=== PATIENT | male | born 1945 | race Caucasian/White ===

== ENCOUNTER 2021-11-12 12:15 | Observation (INO) | payer MEDICARE ==
[2021-11-13 14:37] LABS: #Basophils 0.1 10x3/uL (0.0-0.2); #Eosinphils 0.2 10x3/uL (0.0-0.5); #Monocytes 0.8 10x3/uL (0.0-1.1); #Neutrophils 3.1 10x3/uL (1.5-8.4); %Basophils 0.7 % (0.0-2.0); %Eosinophils 3.2 % (0.0-6.0); %Lymphocytes 44.1 % (18.0-47.0); %Monocytes 10.7 % (0.0-10.0); %Neutrophils 40.8 % (40.0-75.0); Hemoglobin 13.4 g/dL (13.5-17.5); Mean Corpuscular HGB CONC 34.7 g/dL (32.0-36.0); Mean Corpuscular Hemoglobin 30.5 pg (27.0-33.0); Mean Corpuscular Volume 87.7 fl (81.2-95.1); Mean Platelet Volume 11.8 fl (7.4-10.4); Platelet Count 189 10x3/uL (150-450); RBC Distribution Width 12.9 % (11.5-14.5); White Blood Cell (WBC) Count 7.5 10x3/uL (3.5-10.5)
[2021-11-13 14:52] LABS: Anion Gap 20 mmol/L (10-20); BUN (Urea Nitrogen) 11 mg/dL (8.4-25.7); Calc. Creatinine Clearance 0 mL/min (70-130); Calcium 9.5 mg/dL (7.8-10.44); Carbon Dioxide 21 mmol/L (23-31); Chloride 99 mmol/L (98-107); Glucose 300 mg/dL (83-110); Potassium 4.6 mmol/L (3.5-5.1); Sodium 135 mmol/L (136-145)
[2021-11-13 14:55] LABS: INR-International Normal Ratio 0.9; PTT 23.4 sec (22.0-33.0); Prothrombin Time 9.8 sec (9.5-12.1)
[2021-11-17] MEDS ORDERED: PROPOFOL 20 ML ONE (10:30)
[2021-11-17] MEDS ORDERED: Fentanyl 250 MCG/5 ML VIAL ONE (10:31)
[2021-11-17] MEDS ORDERED: Ondansetron PF 4 MG/2 ML Vial ONE (10:31)
[2021-11-17] MEDS ORDERED: Dexamethasone 4 mg/ml Vial ONE (10:31)
[2021-11-17] MEDS ORDERED: Succinylcholine 200 MG/10 ml SYRINGE FS ONE (10:32)
[2021-11-17] MEDS ORDERED: Ketamine 50 MG/ML (10ML VIAL) ONE (10:34)
[2021-11-17] MEDS ORDERED: Propofol 1,000 MG/100 ML VIAL IV ONE ×2 (10:35→14:43)
[2021-11-17] MEDS ORDERED: Lidocaine 1% MPF 2 ML VIAL ONE (10:41)
[2021-11-17] MEDS ORDERED: Famotidine/PF 20 mg/2ml Vial ONE (10:41)
[2021-11-17] MEDS ORDERED: Bupivacaine 0.25% HCL 30 ML VIAL ONE (10:47)
[2021-11-17] MEDS ORDERED: EPINEPHrine 1 MG/ML AMP ONE (10:47)
[2021-11-17] MEDS ORDERED: CEFAZOLIN 1 GM VIAL ONE (11:36)
[2021-11-17] MEDS ORDERED: Lidocaine 1% PF 5 ML VIAL ONE (12:50)
[2021-11-17] MEDS ORDERED: PHENYLEPHRINE-NS 100 MCG/ML 10 ML SYRINGE ONE (13:00)
[2021-11-17] MEDS ORDERED: Communication Order-Pharmacy FS PRN (15:15)
[2021-11-17] MEDS ORDERED: Ondansetron ODT 8 MG TAB PO PRN (15:16)
[2021-11-17] MEDS ORDERED: Fentanyl 100 MCG/2 ML VIAL ONE ×2 (15:42→16:10)
[2021-11-17] MEDS ORDERED: Ondansetron ODT 4 MG TAB PO PRN (15:45)
[2021-11-17] MEDS: metFORMIN 500 MG TAB PO SCH (18:29)
[2021-11-17] MEDS: HYDROcodone/Acetaminophen 10/325 mg Tablet PO PRN ×2 (18:30→21:28)
[2021-11-17] MEDS ORDERED: Tamsulosin HCl 0.4 MG CAP PO SCH (21:00)
[2021-11-17] MEDS: CEFAZOLIN 2 GM in Sodium Chloride 0.9% 100 ML IVPB SCH (21:26)
[2021-11-17] MEDS: Azelastine 137 MCG/Spray 30 ML NS SCH (21:27)
[2021-11-17] MEDS: Aspirin 81 mg Enteric Coated Tablet PO SCH (21:28)
[2021-11-17] MEDS: Fish Oil 1,000 MG CAP PO SCH (21:28)
[2021-11-17] MEDS: Acyclovir 400 mg Tablet PO SCH (21:28)
[2021-11-18] MEDS: CEFAZOLIN 2 GM in Sodium Chloride 0.9% 100 ML IVPB SCH ×2 (03:47→12:18)
[2021-11-18] MEDS: HYDROcodone/Acetaminophen 10/325 mg Tablet PO PRN ×2 (05:19→13:14)
[2021-11-18] MEDS: Sucralfate 1 GM/10 ML UDCUP PO PRN ×2 (05:35→14:15)
[2021-11-18] MEDS: Aspirin 81 mg Enteric Coated Tablet PO SCH (08:53)
[2021-11-18] MEDS: Fish Oil 1,000 MG CAP PO SCH (08:53)
[2021-11-18] MEDS: metFORMIN 500 MG TAB PO SCH (08:53)
[2021-11-18] MEDS: Azelastine 137 MCG/Spray 30 ML NS SCH (08:56)
[2021-11-18] MEDS ORDERED: Lisinopril 20 MG TAB PO SCH (09:00)
[2021-11-18] MEDS ORDERED: Fluticasone Propionate Nasal Spray 16 gm Bottle NASAL SCH (09:00)
[2021-11-18] MEDS ORDERED: Hydrochlorothiazide 25 MG TAB PO SCH (09:00)
[2021-11-18] MEDS ORDERED: Aspirin 81 mg Enteric Coated Tablet PO SCH (09:00)
[2021-11-18] MEDS: Acyclovir 400 mg Tablet PO SCH (09:16)
[2021-11-18 13:02] VITALS: BP 160/86; TEMP 96.7
== END 2021-11-18 15:00 | disposition home or self-care (01) ==
LOC: CSHERHOLD 11-17 09:10 → INTOOBSV 11-17 09:10 → EDSTATUS 11-17 12:15 → CSHTELE 11-17 16:57
PROVIDERS: ADMIT Orthopaedic Surgery; ATTEND Orthopaedic Surgery
PROC: 0RG20A0 Fusion of 2 or more Cervical Vertebral Joints with Interbody Fusion Device, Anterior Approach, Anterior Column, Open Approach (ICD-10-PCS; principal; 2021-11-17)
DX: M50.122 Cervical disc disorder at C5-C6 level with radiculopathy (principal); M47.22 Other spondylosis with radiculopathy, cervical region; M48.02 Spinal stenosis, cervical region; M40.202 Unspecified kyphosis, cervical region; I25.10 Atherosclerotic heart disease of native coronary artery without angina pectoris; I10 Essential (primary) hypertension; E11.51 Type 2 diabetes mellitus with diabetic peripheral angiopathy without gangrene; M19.019 Primary osteoarthritis, unspecified shoulder; E66.9 Obesity, unspecified; Z68.34 Body mass index [BMI] 34.0-34.9, adult; Z79.82 Long term (current) use of aspirin; Z79.84 Long term (current) use of oral hypoglycemic drugs; Z79.899 Other long term (current) drug therapy; Z88.2 Allergy status to sulfonamides; Z88.5 Allergy status to narcotic agent; Z88.8 Allergy status to other drugs, medicaments and biological substances; Z20.822 Contact with and (suspected) exposure to COVID-19
CPT/HCPCS: 22551; 22552; 22845; 22853 ×2; 72050; 80048; 82962; 85025; 85610; 85730; 86850; 86900; 86901; 94760; C1713; C1762; C1889; U0003; U0005; 36415; 36416; 96374; 96376; G0378; J0171; J0690; J1100; J2405; J2704; J3010; J3490; S0020; S0028

== ENCOUNTER 2021-11-13 12:53 | Outpatient (CLI) | payer MEDICARE | END 2021-11-13 12:54 | disposition home or self-care (01) | LOC: CSHLAB 12:53 | PROVIDERS: ATTEND Orthopaedic Surgery | DX: Z01.818 Encounter for other preprocedural examination (principal); M54.2 Cervicalgia; M54.12 Radiculopathy, cervical region | CPT/HCPCS: 80048; 85025; 85610; 85730; 86850; 86900; 86901; 93005; 93010; U0003; U0005 ==

== ENCOUNTER 2021-11-19 16:23 | Emergency (ER) | payer MEDICARE ==
[2021-11-19] MEDS ORDERED: Lidocaine Viscous Sol 2% 15 ml UD Cup ONE (20:01)
[2021-11-19] MEDS ORDERED: Mag-Al Plus 1200 MG/1200 MG/120 MG/30 ML UDCUP ONE (20:01)
[2021-11-19 20:05] LABS: #Eosinphils 0.1 10x3/uL (0.0-0.5); #Monocytes 1.9 10x3/uL (0.0-1.1); #Neutrophils 11.3 10x3/uL (1.5-8.4); %Basophils 0.2 % (0.0-2.0); %Eosinophils 0.7 % (0.0-6.0); %Lymphocytes 13.7 % (18.0-47.0); %Monocytes 12.4 % (0.0-10.0); %Neutrophils 72.4 % (40.0-75.0); Hemoglobin 12.4 g/dL (13.5-17.5); Mean Corpuscular HGB CONC 35.5 g/dL (32.0-36.0); Mean Corpuscular Volume 84.5 fl (81.2-95.1); Mean Platelet Volume 10.8 fl (7.4-10.4); Platelet Count 187 10x3/uL (150-450); RBC Distribution Width 12.4 % (11.5-14.5); Red Blood Cell (RBC) Count 4.13 10x6/uL (4.32-5.72); White Blood Cell (WBC) Count 15.6 10x3/uL (3.5-10.5)
[2021-11-19 20:20] LABS: ALT (SGPT) 44 U/L (8-55); AST (SGOT) 67 U/L (5-34); Albumin 4.3 g/dL (3.4-4.8); Alkaline Phosphatase 49 U/L (40-110); Anion Gap 16 mmol/L (10-20); BUN (Urea Nitrogen) 11 mg/dL (8.4-25.7); Bilirubin, Total 1.1 mg/dL (0.2-1.2); CK (CPK) 996 U/L (30-200); Calc. Creatinine Clearance 0 mL/min (70-130); Calcium 9.7 mg/dL (7.8-10.44); Carbon Dioxide 24 mmol/L (23-31); Chloride 81 mmol/L (98-107); Globulin 3.2 g/dL (2.4-3.5); Glucose 224 mg/dL (83-110); Magnesium 1.5 mg/dL (1.6-2.6); Potassium 3.9 mmol/L (3.5-5.1); Protein, Total 7.5 g/dL (5.8-8.1)
[2021-11-19 20:50] LABS: Sodium 117 mmol/L (136-145)
[2021-11-19] MEDS ORDERED: Dicyclomine 20 MG/2 ML VIAL ONE (22:26)
[2021-11-19] MEDS ORDERED: Morphine 2 MG/ML VIAL ONE (22:50)
[2021-11-20] MEDS ORDERED: Dextrose 50% Abboject 50 ML SYRINGE SLOW IVP PRN (02:24)
[2021-11-20] MEDS ORDERED: HumaLOG 300 UNITS/3 ML VIAL SC PRN ×2 (02:24)
[2021-11-20] MEDS ORDERED: Dextrose 5% in Water 1,000 ML IV PRN (02:24)
[2021-11-20] MEDS ORDERED: Acyclovir 400 mg Tablet PO SCH ×2 (02:30→21:00)
== END 2021-11-20 00:30 | disposition short-term general hospital (02) ==
LOC: CSHERS 16:23
DX: E87.1 Hypo-osmolality and hyponatremia (principal); E11.9 Type 2 diabetes mellitus without complications; K21.9 Gastro-esophageal reflux disease without esophagitis; E78.5 Hyperlipidemia, unspecified; I10 Essential (primary) hypertension
CPT/HCPCS: 71045; 80053; 82550; 83735; 83930; 84443; 84484; 85025; 93005; J0500; J2270

== ENCOUNTER 2022-03-16 11:12 | Emergency (ER) | payer MEDICARE | END 2022-03-16 13:25 | disposition home or self-care (01) | LOC: CSHERS 11:12 | DX: M79.672 Pain in left foot (principal); I25.10 Atherosclerotic heart disease of native coronary artery without angina pectoris; E11.9 Type 2 diabetes mellitus without complications; K21.9 Gastro-esophageal reflux disease without esophagitis; E78.5 Hyperlipidemia, unspecified; I10 Essential (primary) hypertension ==